=== PATIENT | female | born 2000 | race Caucasian/White ===

== ENCOUNTER → 2021-06-10 13:55 | Observation (INO) | END | disposition home or self-care (01) | LOC: 1NENULAB | PROVIDERS: ADMIT Obstetrics & Gynecology; ATTEND Obstetrics & Gynecology ==

== ENCOUNTER 2021-08-05 10:35 | Inpatient (IN) ==
[2021-08-05] MEDS ORDERED: *HR* Labetalol 20 MG/4 ML SYRINGE IVP PRN (10:38)
[2021-08-05] MEDS ORDERED: *HR* Labetalol 20 MG/4 ML SYRINGE IVP ONE ×3 (10:38→11:27)
[2021-08-05] MEDS ORDERED: Calcium Gluconate 1,000 MG/10 ML VIAL IVP PRN (10:38)
[2021-08-05] MEDS ORDERED: Naloxone 0.4 MG/ML INJ IVP PRN (10:39)
[2021-08-05] MEDS ORDERED: Azithromycin 500 MG in 0.9 % Sodium Chloride 250 ML IVPB PRN (10:39)
[2021-08-05] MEDS ORDERED: Magnesium Sulf 20 gm/SW 500mL 4 GM/100 ML BAG IV ONE (10:39)
[2021-08-05] MEDS ORDERED: Metoclopramide 10 MG/2 ML VIAL IVP PRN (10:39)
[2021-08-05] MEDS ORDERED: EPHEDrine 50 MG/ML VIAL IVP PRN (10:39)
[2021-08-05] MEDS ORDERED: Famotidine 20 MG/2 ML VIAL IVP PRN (10:39)
[2021-08-05] MEDS ORDERED: Ondansetron 4 MG/2 ML VIAL IVP PRN (10:39)
[2021-08-05] MEDS ORDERED: 0.9 % Sodium Chloride 1,000 ML IVC SCH (10:45)
[2021-08-05] MEDS ORDERED: Ringers Solution, Lactated 1,000 ML ONE (10:47)
[2021-08-05] MEDS: Epidural Premix (fent/bupiv) 110 ML EP SCH ×2 (10:56→20:50)
[2021-08-05 11:03] LABS: Basophils % 0.4 %; Eosinophils # 0.5 K/mcL (0.0-0.6); Eosinophils % 6.2 %; Hematocrit 34.8 % (35.3-44.9); Hemoglobin 11.2 g/dL (11.5-15.4); Immature Granulocytes % 0.5 % (0-4); Lymphocytes % 25.3 %; Mean Corpuscular HGB Conc 32.2 g/dL (31.6-35.5); Mean Corpuscular Hemoglobin 26.6 pg (28.0-33.3); Mean Corpuscular Volume 82.7 fL (83.0-100.0); Mean Platelet Volume 12.7 fL (9.4-12.4); Monocytes # 0.5 K/mcL (0.0-1.3); Monocytes % 6.2 %; Neutrophils # 4.9 K/mcL (1.6-8.9); Platelet Count 208 K/mcL (140-400); Red Blood Count 4.21 M/mcL (3.82-4.97); Red Cell Distribution Width 15.5 % (11.5-14.5); Segmented Neutrophils % 61.4 %
[2021-08-05] MEDS: Magnesium Sulf 20 gm/SW 500mL 20 GM/500 ML IV.SOLN IVC SCH ×2 (11:12→20:54)
[2021-08-05] MEDS: Ringers Solution, Lactated 1,000 ML IVC SCH ×2 (11:13→19:29)
[2021-08-05 11:22] LABS: Alanine Aminotransferase 8 Units/L (7-52); Aspartate Amino Transferase 14 Units/L (13-39); BUN/Creatinine Ratio 13 (6-26); Blood Urea Nitrogen 9 mg/dL (6-20); Lactate Dehydrogenase 194 Units/L (140-271); Uric Acid 5.7 mg/dL (2.3-7.6); eGFR For African Americans > 60 (> 60); eGFR For Non-African Americans > 60 (> 60)
[2021-08-05 11:55] LABS: Influenza A PCR Negative (Negative); Influenza B PCR Negative (Negative); Resp. Syncytial Virus PCR Negative (Negative)
[2021-08-05 11:58] LABS: SARS-CoV-2 by PCR (In House) Negative (Negative)
[2021-08-05 12:26] LABS: Creatinine,Urine 134 mg/dL
[2021-08-05] MEDS: Oxytocin 30 UNIT/503 ML BAG IVC SCH (12:40)
[2021-08-05 12:57] LABS: Amphetamine Screen,Urine Negative ng/mL (Cutoff=1000); Barbiturate Screen,Urine Negative ng/mL (Cutoff=200); Benzodiazepines Screen,Urine Negative ng/mL (Cutoff=200); Cannabinoid Screen,Urine Negative ng/mL (Cutoff = 50); Cocaine Screen,Urine Negative ng/mL (Cutoff= 300); Opiate Screen,Urine Negative ng/mL (Cutoff=300); Phencyclidine Screen,Urine Negative ng/mL (Cutoff=25)
[2021-08-05] MEDS ORDERED: *HR* Phenylephrine 10 MG/ML VIAL ONE (14:00)
[2021-08-05] MEDS ORDERED: Acetaminophen 325 MG TABLET PO ONE (17:55)
[2021-08-05] MEDS ORDERED: *HR* Nalbuphine 10 MG/ML AMPUL IV PRN (19:20)
[2021-08-05 20:16] LABS: Basophils % 0.3 %; Eosinophils # 0.1 K/mcL (0.0-0.6); Eosinophils % 1.8 %; Hematocrit 34.3 % (35.3-44.9); Hemoglobin 11.1 g/dL (11.5-15.4); Immature Granulocytes % 0.5 % (0-4); Immature Platelets 15.1 % (1.1-6.1); Lymphocytes # 1.6 K/mcL (0.6-4.6); Lymphocytes % 20.9 %; Mean Corpuscular HGB Conc 32.4 g/dL (31.6-35.5); Mean Corpuscular Hemoglobin 26.7 pg (28.0-33.3); Mean Corpuscular Volume 82.7 fL (83.0-100.0); Mean Platelet Volume 12.5 fL (9.4-12.4); Monocytes # 0.5 K/mcL (0.0-1.3); Monocytes % 6.6 %; Neutrophils # 5.3 K/mcL (1.6-8.9); Platelet Count 193 K/mcL (140-400); Red Blood Count 4.15 M/mcL (3.82-4.97); Red Cell Distribution Width 15.6 % (11.5-14.5); Segmented Neutrophils % 69.9 %; White Blood Count 7.6 K/mcL (4.3-11.1)
[2021-08-05 20:29] LABS: Alanine Aminotransferase 7 Units/L (7-52); Aspartate Amino Transferase 13 Units/L (13-39); BUN/Creatinine Ratio 10 (6-26); Blood Urea Nitrogen 7 mg/dL (6-20); eGFR For African Americans > 60 (> 60); eGFR For Non-African Americans > 60 (> 60)
[2021-08-05] MEDS ORDERED: Ropivacaine/PF 0.2% 20 ML VIAL ONE (21:18)
[2021-08-06] MEDS ORDERED: *HR* Ropivacaine/PF 0.5% 20 ML VIAL ONE (03:10)
[2021-08-06] MEDS: Oxytocin 30 UNIT/503 ML BAG IVC SCH (08:08)
[2021-08-06] MEDS ORDERED: Oxytocin 30 UNIT/503 ML BAG IVC SCH (08:37)
[2021-08-06] MEDS ORDERED: Lanolin 7 G OINT...G. TP PRN (08:37)
[2021-08-06] MEDS ORDERED: Benzocaine/Menthol 56 GM AEROSOL SPRAY TP PRN (08:37)
[2021-08-06] MEDS ORDERED: Ondansetron ODT 4 MG TAB.RAPDIS SL PRN (08:37)
[2021-08-06] MEDS ORDERED: Calcium Gluconate 1,000 MG/10 ML VIAL IVP PRN (08:37)
[2021-08-06] MEDS: Magnesium Sulf 20 gm/SW 500mL 20 GM/500 ML IV.SOLN IVC SCH ×2 (10:15→20:22)
[2021-08-06] MEDS: Ringers Solution, Lactated 1,000 ML IVC SCH (12:06)
[2021-08-06] MEDS: Acetaminophen 325 MG TABLET PO SCH ×2 (14:33→20:30)
[2021-08-06] MEDS: Ibuprofen 600 MG TABLET PO SCH ×2 (15:27→22:08)
[2021-08-07] MEDS: Ringers Solution, Lactated 1,000 ML IVC SCH (00:17)
[2021-08-07] MEDS: Acetaminophen 325 MG TABLET PO SCH ×3 (02:43→15:36)
[2021-08-07 04:20] LABS: Basophils % 0.2 %; Eosinophils # 0.3 K/mcL (0.0-0.6); Eosinophils % 2.7 %; Hematocrit 25.2 % (35.3-44.9); Immature Granulocytes % 0.7 % (0-4); Lymphocytes # 2.3 K/mcL (0.6-4.6); Lymphocytes % 24.1 %; Mean Corpuscular HGB Conc 32.5 g/dL (31.6-35.5); Mean Corpuscular Hemoglobin 27.9 pg (28.0-33.3); Mean Corpuscular Volume 85.7 fL (83.0-100.0); Mean Platelet Volume 12.5 fL (9.4-12.4); Monocytes # 0.6 K/mcL (0.0-1.3); Monocytes % 6.3 %; Neutrophils # 6.3 K/mcL (1.6-8.9); Platelet Count 159 K/mcL (140-400); Red Blood Count 2.94 M/mcL (3.82-4.97); Red Cell Distribution Width 16.3 % (11.5-14.5); White Blood Count 9.5 K/mcL (4.3-11.1)
[2021-08-07 04:22] LABS: Hemoglobin 8.2 g/dL (11.5-15.4)
[2021-08-07 04:36] LABS: Alanine Aminotransferase 7 Units/L (7-52); Aspartate Amino Transferase 13 Units/L (13-39); eGFR For African Americans > 60 (> 60); eGFR For Non-African Americans > 60 (> 60)
[2021-08-07] MEDS: Ibuprofen 600 MG TABLET PO SCH ×3 (06:48→20:03)
[2021-08-07] MEDS: Prenatal Vit/FA 1 EACH TABLET PO SCH (08:56)
[2021-08-08] MEDS: Acetaminophen 325 MG TABLET PO SCH ×2 (01:10→08:49)
[2021-08-08] MEDS: Ibuprofen 600 MG TABLET PO SCH ×2 (01:10→08:50)
[2021-08-08 07:24] VITALS: O2SAT 98
[2021-08-08] MEDS: Prenatal Vit/FA 1 EACH TABLET PO SCH (08:50)
[2021-08-08 11:40] VITALS: BP 147/99; PULSE 80; TEMP 98.4
== END 2021-08-08 14:28 | disposition home or self-care (01) | DRG 560 ==
LOC: 1NENULAB 10:35 → 1NENUOBS 08-06 08:47
PROVIDERS: ADMIT Obstetrics & Gynecology; ATTEND Obstetrics & Gynecology